=== PATIENT | male | born 1965 | race Caucasian/White ===

== ENCOUNTER 2022-03-02 04:13 | Day surgery (SDC) | payer OTHER ==
[2022-02-25 15:22] VITALS: BMI 27.6
[2022-03-02 08:44] VITALS: RESP 20
[2022-03-02] MEDS ORDERED: FENTANYL CITRATE/PF 50 MCG/ML VIAL ONE (11:46)
[2022-03-02] MEDS ORDERED: PROPOFOL 20 ML ONE (12:07)
[2022-03-02 12:25] VITALS: TEMP 97.3
[2022-03-02 13:18] VITALS: BP 141/87; PULSE 53
== END 2022-03-02 14:24 | disposition home or self-care (01) ==
LOC: JASU-SURG 04:13
PROVIDERS: ATTEND Urology
PROC: 0TF3XZZ Fragmentation in Right Kidney Pelvis, External Approach (ICD-10-PCS; principal; 2022-03-02 11:00)
DX: N20.0 Calculus of kidney (principal)
CPT/HCPCS: C9803-CS; U0003; U0005